=== PATIENT | female | born 1965 | race Caucasian/White ===

== ENCOUNTER → 2017-09-27 | Outpatient (CLI) | payer OTHER ==
[~2017-09-27] MED LIST: ALBU90I INH; CYCL10 PO
[2017-09-27 14:30] LABS: Stool Occult Bld Immuno 1 Negative (NEGATIVE)
== END | disposition home or self-care (01) ==
LOC: LAB FUT 08-25 07:25 → LAB SHORT 08:30 → OLS 08:30
PROVIDERS: Family Medicine
DX: Z12.11 Encounter for screening for malignant neoplasm of colon (principal); E55.9 Vitamin D deficiency, unspecified; G56.03 Carpal tunnel syndrome, bilateral upper limbs; D64.9 Anemia, unspecified
CPT/HCPCS: 82274

== ENCOUNTER 2023-06-28 10:25 | Day surgery (SDC) | payer BC ==
[~2023-06-28] VITALS: Ht 170.2 cm; Wt 105.5 kg
[~2023-06-28 10:25] MED LIST changes: +ALBU90OI INH; +CETI5; +CIPR500 PO; +EPINEPhrine HCl 1 MG/ML 1ML Amp ONE; +HYDCHL12.5 PO; +Imitrex100 MG PO; +Lactated Ringer's 1,000 ML IV ONE; +Lidocaine 1%-Epineph 1:100000 20 ML MDV ONE; +MONT10T PO; +Ropivacaine 0.5% HCl/Pf 5 MG/ML 20ML VIAL ONE
[2023-06-28] MEDS ORDERED: propofoL 20 ML IV ONE (10:29)
[2023-06-28] MEDS ORDERED: FentaNYL Citrate 50 MCG/ML 2 ML Injection ONE ×2 (10:29→13:18)
[2023-06-28] MEDS ORDERED: Ondansetron HCl 2 MG / ML 2ML Vial ONE (10:34)
[2023-06-28] MEDS ORDERED: Dexamethasone Sod Phos 10 MG/ML 1ML VIAL ONE (10:34)
[2023-06-28] MEDS ORDERED: CeFAZolin Sodium 2,000 MG VIAL ONE (10:49)
[2023-06-28] MEDS ORDERED: NS 50 ML IV ONE (10:50)
[2023-06-28] MEDS ORDERED: FLUTICASONE-SA1 EAC9 INH (10:56)
[2023-06-28] MEDS ORDERED: Lactated Ringer's 1,000 ML IV ONE (11:03)
[2023-06-28] MEDS ORDERED: Midazolam HCl 1MG / ML 2ML Vial ONE (11:16)
[2023-06-28] MEDS ORDERED: Acetaminophen 500 MG Tab ONE (11:16)
[2023-06-28] MEDS ORDERED: Dexmedetomidine HCL 200 MCG / 2 ML ONE (11:30)
[2023-06-28] MEDS ORDERED: Rocuronium Bromide 10 MG/ML 5ML Injection IV ONE (12:00)
[2023-06-28] MEDS ORDERED: Phenylephrine HCl 100 MCG/ML-NS 10MLSYR (1MG/10ML) ONE (12:05)
[2023-06-28] MEDS ORDERED: Ketorolac Tromethamine 30mg Vial ONE (12:06)
[2023-06-28 13:55] VITALS: BP 125/86
[2023-06-28] MEDS ORDERED: OxyCODONE HCL 5 MG TAB ONE (14:00)
--- NOTE | 2023-06-28 14:27 | NUR ---
06/28/23 1427 TIAN NUNEZ RECEIVED REPORT FROM NOHELIA GONZALEZ, ENGAGED IN DC INSTRUCTIONS WITH PT AND FAMILY IN ROOM. ALL QUESTIONS ASKED AND ANSWERED. EDUCATED ON POLAR PACK. PT REPORTS PAIN IS TOLERABLE AT 3-4 AND NO NAUSEA, TOLERATING PO INTAKE. NOHELIA GONZALEZ BACK FROM BREAK AND REASSUMED CARE
== END 2023-06-28 14:40 | disposition home or self-care (01) ==
LOC: ORSCSDS 10:25
PROVIDERS: Orthopaedic Surgery
PROC: 0SQC4ZZ Repair Right Knee Joint, Percutaneous Endoscopic Approach (ICD-10-PCS; principal; 2023-06-28 12:00)
DX: S83.241A Other tear of medial meniscus, current injury, right knee, initial encounter (principal); M94.261 Chondromalacia, right knee; E11.9 Type 2 diabetes mellitus without complications; J45.909 Unspecified asthma, uncomplicated; Z79.899 Other long term (current) drug therapy; E66.9 Obesity, unspecified; Z68.36 Body mass index [BMI] 36.0-36.9, adult
CPT/HCPCS: 82947; A9270; C1713; J0171; J0690; J1100; J1885; J2250; J2371; J2405; J2704; J2795; J3010; J7120

== ENCOUNTER 2024-07-04 11:26 | Day surgery (SDC) | payer BC ==
[~2024-07-04] VITALS: Ht 170.2 cm; Wt 92.5 kg
[~2024-07-04 11:26] MED LIST changes: -EPINEPhrine HCl 1 MG/ML 1ML Amp ONE; +FLUTICASONE-SA1 EAC9 INH; -Lidocaine 1%-Epineph 1:100000 20 ML MDV ONE; -Ropivacaine 0.5% HCl/Pf 5 MG/ML 20ML VIAL ONE; +propofoL 50 ML IV ONE
[2024-07-04] MEDS ORDERED: Lactated Ringer's 1,000 ML IV ONE (12:38)
[2024-07-04 14:00] VITALS: BP 104/68
== END 2024-07-04 14:12 | disposition home or self-care (01) ==
LOC: ORSCSDS 11:26
PROVIDERS: Surgery
PROC: 0DBL8ZX Excision of Transverse Colon, Via Natural or Artificial Opening Endoscopic, Diagnostic (ICD-10-PCS; principal; 2024-07-04 13:00)
PROC: 0DBP8ZX Excision of Rectum, Via Natural or Artificial Opening Endoscopic, Diagnostic (ICD-10-PCS; principal; 2024-07-04 13:00)
DX: Z12.11 Encounter for screening for malignant neoplasm of colon (principal); D12.3 Benign neoplasm of transverse colon; D12.8 Benign neoplasm of rectum; E78.5 Hyperlipidemia, unspecified; E11.9 Type 2 diabetes mellitus without complications; K57.30 Diverticulosis of large intestine without perforation or abscess without bleeding; E66.9 Obesity, unspecified; Z68.34 Body mass index [BMI] 34.0-34.9, adult; Z79.899 Other long term (current) drug therapy
CPT/HCPCS: 82947; 88305; J2704; J7120

== ENCOUNTER → 2024-11-20 | Outpatient (CLI) | payer BC ==
[~2024-11-20] MED LIST changes: -Lactated Ringer's 1,000 ML IV ONE; -propofoL 50 ML IV ONE
[2024-11-20 15:31] LABS: BASOPHILS ABSOLUTE AUTO 0.03 K/mm3 (0.00-0.23); BASOPHILS PERCENT AUTO 1 % (0-2); EOSINOPHILS ABSOLUTE AUTO 0.06 K/mm3 (0.00-0.68); EOSINOPHILS PERCENT AUTO 2 % (0-6); Hematocrit 42.6 % (33.0-51.0); Hemoglobin 14.3 g/dL (11.5-16.0); IMMATURE GRAN ABSOLUTE AUTO 0.01 K/mm3 (0.00-0.10); IMMATURE GRAN PERCENT AUTO 0 % (0-1); LYMPHOCYTES ABSOLUTE AUTO 1.33 K/mm3 (0.84-5.20); LYMPHOCYTES PERCENT AUTO 45 % (21-46); MONOCYTES ABSOLUTE AUTO 0.19 K/mm3 (0.16-1.47); MONOCYTES PERCENT AUTO 7 % (4-13); Mean Corpuscular HGB Conc 33.6 g/dL (31.5-36.5); Mean Corpuscular Volume 90 fL (80-100); NEUTROPHILS ABSOLUTE AUTO 1.32 K/mm3 (1.96-9.15); NEUTROPHILS PERCENT AUTO 45 % (41-73); NRBC ABSOLUTE 0.00 K/mm3 (0.00-0.02); NRBC Auto 0.0 /100 WBC (0.0-0.2); Platelet Count 147 K/mm3 (150-400); RDW Coefficient Variation 13.7 % (11.7-14.2); RDW Standard Deviation 45.2 fL (35.1-46.3)
[2024-11-20 16:34] LABS: Ferritin, Serum 639.0 ng/mL (8-252); Total Iron Binding Capacity 277.0 ug/dL (250-450)
== END | disposition home or self-care (01) ==
LOC: LAB 10:00 → LAB SHORT 10:00
PROVIDERS: Internal Medicine Hematology & Oncology
DX: E61.1 Iron deficiency (principal)
CPT/HCPCS: 82728; 83540; 83550; 85025